=== PATIENT | female | born 1990 | race Caucasian/White ===

== ENCOUNTER 2020-09-20 17:16 | Emergency (ER) | payer OTHER ==
[~2020-09-20] VITALS: Ht 154.9 cm; Wt 61.2 kg
[2020-09-20] MEDS ORDERED: HYDROXYZINE HCL25 M2 (17:31)
[2020-09-20] MEDS ORDERED: LUNESTA3 MG PO (17:31)
[2020-09-20] MEDS ORDERED: DULOXETINE HCL60 MG PO (17:31)
[2020-09-20] MEDS ORDERED: [UNRECOGNIZED DRUG - OTHER] (17:31)
[2020-09-20] MEDS ORDERED: APAP W/CODEINE1 TA2 PO ×2 (18:48→19:23)
[2020-09-20 18:50] VITALS: BP 124/68
== END 2020-09-20 18:51 | disposition home or self-care (01) ==
LOC: M.ERS 17:16
DX: S93.601A Unspecified sprain of right foot, initial encounter (principal); X50.1XXA Overexertion from prolonged static or awkward postures, initial encounter; Y93.89 Activity, other specified; Y92.89 Other specified places as the place of occurrence of the external cause; Y99.8 Other external cause status